=== PATIENT | female | born 1985 | race Caucasian/White ===

== ENCOUNTER 2017-05-09 18:41 | Emergency (ER) | payer SELFPAY ==
[2017-05-09] MEDS ORDERED: Ketorolac INJ* 60 MG/2 ML VIAL IM ONE (19:26)
[2017-05-09] MEDS ORDERED: Ondansetron ODT TAB* 4 MG PO ONE ×2 (19:26→20:36)
[2017-05-09] MEDS ORDERED: Omeprazole CAP* 20 MG PO ONE (20:37)
--- NOTE | 2017-05-09 20:43 | UC ---
Stanislav Mack Stephanie, scribed for Kayce Dupree MD on 05/09/17 at 1931 . Headache HPI - HPI Summary HPI Summary: The pt is a 32 y/o F presenting to with c/o migraine since 05/06/17. Onset with pain around the right eye, typical of her migraines. Symptoms include nausea, vomiting (2x), generalized weakness, neck stiffness and numbness in fingertips. The ROOT started behind the R eye and radiated behind L eye and to the rest of the head. Aggravating factors include lying supine. The pt denies sore throat, diarrhea, and numbness and tingling in arms. The pt reports a history of migraines 2-3 times per month. She usually self-medicates with Migradoraxin (combo of nsaid and ergotamine, doses uncertain) from [facility] which resolves the ROOT however, Migradoraxin has not resolved the current ROOT. Yesterday she used a nasal spray, given by her physician in [facility], for treatment of migraine which has not relieved her pain. The pt reports decreased oral fluids today. Typically she has about 2 migraines per month. - History Of Current Complaint Chief Complaint: UCHeadache Stated Complaint: HEADACHE, AND VOMITING Time Seen by Provider: 05/09/17 19:09 Hx Obtained From: Patient Hx Last Menstrual Period: 1 wk ago ?: No Onset/Duration: Gradual Onset, Lasting Days - 3, Still Present Currently Pain Is: Severe Pain Intensity: 8 Pain Scale Used: 0-10 Numeric Timing: Constant Location of Headache: Diffuse Aggravating Factor(s): Other - lying supine Allevating Factor(s): Nothing Associated Signs And Symptoms: Positive: Nausea, Vomiting, Neck Stiffness - Allergies/Home Medications Allergies/Adverse Reactions: Allergies Allergy/AdvReac Type Severity Reaction Status Date / Time No Known Allergies Allergy Verified 05/09/17 19:06 Home Medications: Home Medications NK [No Home Medications Reported] 05/09/17 [History Confirmed 05/09/17] PMH/Surg Hx/FS Hx/Imm Hx Previously Healthy: Yes - Pt denies past medical history. Neurological History: Migraine - Surgical History Surgical History: None - Family History Known Family History: Positive: Other - migraines- maternal - Social History Occupation: Student Lives: Dormitory/Roommates Alcohol Use: None Substance Use Type: None Smoking Status (MU): Never Smoked Tobacco Review of Systems Constitutional: Negative Skin: Negative Eyes: Negative ENT: Negative Respiratory: Negative Cardiovascular: Negative Gastrointestinal: Vomiting, Nausea, Other - has had epigastric pain for several months with eating. Evaluated in [facility]. On 05/04, she took 2 doses of an antibacterial to treat H. pylori followed by 4 doses of ? probiotic. Names of meds unknown. Genitourinary: Negative Motor: Weakness Neurovascular: Negative Musculoskeletal: Other: - neck stiffness Neurological: Headache, Numbness - numbness in fingertips Psychological: Negative All Other Systems Reviewed And Are Negative: Yes Physical Exam Triage Information Reviewed: Yes Appearance: Pain Distress - looks uncomfortable., Thin Vital Signs: Initial Vital Signs Temp 99.9 F 05/09/17 19:02 Pulse 80 05/09/17 19:02 Resp 12 05/09/17 19:02 BP 126/65 05/09/17 19:02 Pulse Ox 100 05/09/17 19:02 Vital Signs Reviewed: Yes Eye Exam: Other - NAOMY with normal EOM, no photophobia. Fundi seen well with good venous pulsations. Eyes: Positive: Conjunctiva Clear ENT: Positive: Pharynx normal, TMs normal Neck: Positive: Supple, Nontender, No Lymphadenopathy - can flex chin to chest; no nucal rigidity.. Negative: Nuchal Rigidity Respiratory: Positive: Lungs clear, Normal breath sounds Cardiovascular: Positive: RRR, No Murmur Abdomen Description: Positive: No Organomegaly, Soft, Other: - tenderness in epigastrium without guarding or rebound. Liver edge non-tender. Bowel Sounds: Positive: Present Musculoskeletal Exam: Normal Neurological: Positive: Alert, Muscle Tone Normal Psychological Exam: Normal Skin Exam: Normal Re-Evaluation - Re-Evaluation First Eval Re-Evaluation Time: 20:25 - some decrease in nausea and headache, but not complete. Still feels unwell. Change: Improved Headache Course/Dx - Course Course Of Treatment: The pt is a 32 y/o F presenting to with c/o migraine since 05/06/17. Persisting epigastric discomfort and nausea suggestive of possible viral gastro, possible reaction to meds taken in [facility] for treatment of ? H. pylori. - Differential Dx/Diagnosis Differential Diagnosis/HQI/PQRI: Viral Syndrome, Other - viral gastro, migraine headache. Provider Diagnoses: epigastric pain and vomiting: possible viral gastro v reaction to recent antibiotic treatment. migraine headache. Discharge - Discharge Plan Condition: Stable Disposition: HOME Patient Education Materials: Gastritis (ED) Referrals: [facility] - Rashad SEGUNDO [Primary Care Provider] - Additional Instructions: at about 10 pm, repeat ondansetron to decrease nausea. Take small sips of fluid after about . If tolerated,after half an hour, you can then take omeprazole 40mg (2 x 20mg) to decrease stomach acid and to help relieve the discomfort in your stomach. About 20 to 30 minutes after taking it, try eating some crackers or soup. If you have increasing pain or vomiting, you will need further evaluation in the ER. The documentation as recorded by the Stanislav hernadez Stephanie accurately reflects the service I personally performed and the decisions made by me, Kayce Dupree MD.
[2017-05-09 21:37] VITALS: BP 109/71
== END 2017-05-09 21:00 | disposition home or self-care (01) ==
LOC: UCEAST 18:41
DX: G43.909 Migraine, unspecified, not intractable, without status migrainosus (principal); R10.13 Epigastric pain; R11.10 Vomiting, unspecified
CPT/HCPCS: 96372; 99203; A9270-GY; G0463; J1885